=== PATIENT | female | born 1990 | race Caucasian/White ===

== ENCOUNTER 2017-02-19 08:43 | Emergency (ER) | payer BC ==
[~2017-02-19] VITALS: Ht 157.5 cm; Wt 112.0 kg
[~2017-02-19 08:43] MED LIST: ATEN50TA PO; DIAZ5 PO
[2017-02-19 08:45] VITALS: BP 139/97; PULSE 82; RESP 15; TEMP 98.6; O2SAT 98
[2017-02-19 09:01] VITALS: BP 129/71; PULSE 95; RESP 18; O2SAT 100
[2017-02-19] MEDS ORDERED: LISI-515 PO (09:01)
[2017-02-19] MEDS ORDERED: METO50TA PO (09:01)
--- NOTE | 2017-02-19 09:36 | PD ---
HPI Chief Complaint: Medical Clearance Time Seen by Provider: 09:21 Travel History International Travel<30 days: No Contact w/Intl Traveler<30days: No Traveled to known affect area: No History of Present Illness HPI 27-year-old female presents to the emergency room for evaluation of left arm numbness and tingling for the past several hours. Patient states she woke up with her symptoms and believes she slept funny on her arm but because the sensation continued, she came to the emergency room. Patient states while waiting in the emergency room the sensation has improved drastically. Her initial symptoms were from the shoulder to the fingertips, now it only is from the elbows to the finger tips and has decreased in intensity. She denies any weakness, other paresthesias, slurred speech, or difficulty thinking. She has associated headache, sore throat, and congestion that started yesterday. She took ibuprofen for headache yesterday. Patient has history of hypertension and takes her lisinopril metoprolol purposely. Her grandfather and great- grandfather of a stroke. She denies any neck pain or history of neck trauma. PFSH Past Medical History Hx Anticoagulant Therapy: No Anemia: Yes (HX OF AMEMIA) Anxiety: Yes Cardiovascular Problems: Yes (HTN) Chemotherapy: No Cerebrovascular Accident: No Diabetes: No Diminished Hearing: No Headaches: Yes Hypertension: Yes Respiratory: No Immunizations Current: Yes ?: Unknown : 2 Para: 2 Past Surgical History Section: Yes (X 2) Gynecologic Surgery: Yes (C-SECT X 2 ) Hysterectomy: No Social History Alcohol Use: No Tobacco Use: No (never) Substance Use: No Allergies-Medications (Allergen,Severity, Reaction): Coded Allergies: penicillin G (Unverified Allergy, Intermediate, RASH, 12/15/16) Reported Meds & Prescriptions Reported Meds & Active Scripts Active Reported Lisinopril 20 Mg Tab 20 Mg PO DAILY Metoprolol Tartrate 50 Mg Tab 50 Mg PO DAILY Valium (Diazepam) 5 Mg Tab 5 Mg PO BID PRN Review of Systems Except as stated in HPI: all other systems reviewed are Neg Physical Exam Narrative GENERAL: Well-nourished, well-developed female in no acute distress. Afebrile. Ambulatory SKIN: Focused skin assessment warm/dry. HEAD: Normocephalic. EYES: No scleral icterus. No injection or drainage. NECK: Supple, trachea midline. No JVD or lymphadenopathy. CARDIOVASCULAR: Regular rate and rhythm without murmurs, gallops, or rubs. RESPIRATORY: Breath sounds equal bilaterally. No accessory muscle use. NEUROLOGICAL: Awake and alert. Cranial nerves II through XII intact. Motor and sensory grossly within normal limits. Five out of 5 muscle strength in all muscle groups. Normal speech. No pronator drift in upper or lower extremities. Data Data Last Documented VS Vital Signs Date Time Temp Pulse Resp B/P (MAP) Pulse Ox O2 Delivery O2 Flow Rate FiO2 02/19/17 09:01 95 18 129/71 (90) 100 Room Air 02/19/17 08:45 98.6 Orders Orders Ed Discharge Order (02/19/17 09:36) [facility] Medical Decision Making Medical Screen Exam Complete: Yes Emergency Medical Condition: Yes Medical Record Reviewed: Yes Differential Diagnosis Headache, peripheral neuropathy, ICH unlikely Narrative Course 27-year-old female with history of well-controlled hypertension presents to the emergency room for evaluation of left upper extremity paresthesias that started when she woke up this morning. Patient initially thought she slept on her arm wrong but the sensation persisted and brought her to the emergency room. States while waiting in the emergency room room, the sensation has significantly decreased in severity and location. It was initially from shoulder to fingers and it is now from elbow to the fingers. There are no focal neurological deficits on exam. Patient has mild sinus headache but has associated upper respiratory infection. I discussed performing a CT of the head with the patient but she said "only if you think it is necessary." I do not feel it is necessary because patient likely just pinched a nerve last night as patient has had spontaneous improvement with no other neuro deficits. She was reassured and told to follow up with primary care physician or return immediately for any worsening or changing symptoms. She understands and agrees to plan. Diagnosis Primary Impression: Arm paresthesia, left Referrals: Primary Care Physician Additional Instructions: Follow-up with a primary care physician. Return to the emergency room for worsening symptoms. Disposition: 01 DISCHARGE HOME Condition: Stable Tangela Mendez Feb 19, 2017 09:36
== END 2017-02-19 09:44 | disposition home or self-care (01) ==
LOC: NEPE 08:43
DX: R20.2 Paresthesia of skin (principal); R51 Headache; J02.9 Acute pharyngitis, unspecified; I10 Essential (primary) hypertension
CPT/HCPCS: 99281

== ENCOUNTER 2017-06-09 18:08 | Emergency (ER) | payer BC, OTHER ==
[~2017-06-09] VITALS: Ht 160 cm; Wt 115.5 kg
[~2017-06-09 18:08] MED LIST changes: -ATEN50TA PO; +AZIT500T2 PO; +LISI-515 PO; +METO50TA PO
[2017-06-09 18:09] VITALS: BP 170/104; PULSE 130; RESP 20; TEMP 99.3; O2SAT 100
[2017-06-09] MEDS ORDERED: SODIUM CHLOR 0.9% 1000 ML INJ 1,000 ML IV SCH (18:22)
[2017-06-09 18:27] VITALS: O2SAT 100
[2017-06-09] MEDS ORDERED: ONDANSETRON HCL 4 MG/2 ML VIAL IVP ONE (18:30)
[2017-06-09] MEDS ORDERED: SODIUM CHLORIDE 0.9% FLUSH 10 ML FLUSH IV FLUSH PRN (18:30)
[2017-06-09] MEDS ORDERED: KETOROLAC TROMETHAMINE 30 MG/ML (IVP) VIAL IVP ONE (18:30)
--- NOTE | 2017-06-09 18:34 | PD ---
HPI Chief Complaint: GI Complaint Time Seen by Provider: 18:20 Travel History International Travel<30 days: No Contact w/Intl Traveler<30days: No Traveled to known affect area: No History of Present Illness HPI 27-year-old female presents to the emergency department with complaint of feeling nauseated last night with onset of vomiting this morning at approximately 11 AM. Reports vomiting 6-7 times. Reports eating mushrooms last night feels her symptoms could be associated to this. Denies fevers. Reports epigastric pain that is relieved after vomiting. Denies abdominal pain at this time. Says she feels cold and clammy. Denies nasal congestion, ear pain, throat pain, cough. Feels lightheaded and lethargic. Denies diarrhea. Denies hematuria, hematochezia, dysuria. Last vomited approximately 15 minutes ago. Continued nausea. Took Tylenol last night for symptom management. Took Tums today for symptom management with some good relief. No known relieving factors. No known aggravating factors. Her son was sick with similar symptoms within the past week, but was not vomiting. Allergies to penicillin. History of hypertension and is compliant with medications. Primary care provider is Dr. Cox. Has no other medical complaints. No other modifying factors or associated signs and symptoms. PFSH Past Medical History Hx Anticoagulant Therapy: No Anemia: Yes Anxiety: Yes Cardiovascular Problems: Yes (HTN) Chemotherapy: No Cerebrovascular Accident: No Diabetes: No Diminished Hearing: No Headaches: Yes Hypertension: Yes Respiratory: No Immunizations Current: Yes ?: Not LMP: 08/2016 : 2 Para: 2 Past Surgical History Section: Yes (X 2) Gynecologic Surgery: Yes (C-SECT X 2 ) Hysterectomy: No Social History Alcohol Use: No Tobacco Use: No Substance Use: No Allergies-Medications (Allergen,Severity, Reaction): Coded Allergies: penicillin G (Verified Allergy, Intermediate, RASH, 06/09/17) Reported Meds & Prescriptions Reported Meds & Active Scripts Active Ibuprofen 800 Mg Tab 800 Mg PO Q6HR PRN Zofran Odt (Ondansetron Odt) 4 Mg Tab 4 Mg SL Q6HR PRN Reported Lisinopril 20 Mg Tab 20 Mg PO DAILY Metoprolol Tartrate 50 Mg Tab 50 Mg PO DAILY Valium (Diazepam) 5 Mg Tab 5 Mg PO BID PRN Review of Systems Except as stated in HPI: all other systems reviewed are Neg Physical Exam Narrative GENERAL: Well-nourished, well-developed female patient, in no acute distress; low grade temp 99.3, nontoxic-appearing SKIN: Warm and dry. No rash. HEAD: Atraumatic. Normocephalic. EYES: Pupils equal and round. No scleral icterus. No injection or drainage. ENT: Mucosa pink and moist. No erythema or exudates. No uvular edema. No uvular , palatal, or tonsillar deviation. Airway patent. EARS: Bilateral pinnae and external canals appear within normal limits. Bilateral tympanic membranes without erythema, dullness or perforation. NECK: Trachea midline. No lymphadenopathy. CARDIOVASCULAR: Regular rate and rhythm. No murmur appreciated. RESPIRATORY: No accessory muscle use. Clear to auscultation. Breath sounds equal bilaterally. No retractions or tachypnea. GASTROINTESTINAL: Abdomen soft, non-tender, nondistended. Hepatic and splenic margins not palpable. Bowel sounds are active 4 quadrants. MUSCULOSKELETAL: No obvious deformities. No clubbing. No cyanosis. No edema. NEUROLOGICAL: Awake and alert. Oriented 3. No obvious cranial nerve deficits. Motor grossly within normal limits. Normal speech. Moves all extremities. 5/5 strength to all extremities. PSYCHIATRIC: Appropriate mood and affect; insight and judgment normal. Data Data Last Documented VS Vital Signs Date Time Temp Pulse Resp B/P (MAP) Pulse Ox O2 Delivery O2 Flow Rate FiO2 06/09/17 20:53 06/09/17 19:44 89 18 98 Room Air 06/09/17 18:09 99.3 Orders Orders Complete Blood Count With Diff (06/09/17 18:22) Comprehensive Metabolic Panel (06/09/17 18:22) Lipase (06/09/17 18:22) Urinalysis - C+S If Indicated (06/09/17 18:22) Iv Access Insert/Monitor (06/09/17 18:22) Ecg Monitoring (06/09/17 18:22) Oximetry (06/09/17 18:22) Ondansetron Inj (Zofran Inj) (06/09/17 18:30) Sodium Chlor 0.9% 1000 Ml Inj (Ns 1000 M (06/09/17 18:22) Sodium Chloride 0.9% Flush (Ns Flush) (06/09/17 18:30) Ketorolac Inj (Toradol Inj) (06/09/17 18:30) Ed Urine Pregnancytest Poc (06/09/17 18:22) Influenzae A/B Antigen (06/09/17 18:30) Ed Discharge Order (06/09/17 20:11) Labs Laboratory Tests Test 06/09/17 18:46 06/09/17 19:12 White Blood Count 14.9 TH/MM3 Red Blood Count 5.45 MIL/MM3 Hemoglobin 15.3 GM/DL Hematocrit 45.1 % Mean Corpuscular Volume 82.9 FL Mean Corpuscular Hemoglobin 28.0 PG Mean Corpuscular Hemoglobin Concent 33.8 % Red Cell Distribution Width 13.3 % Platelet Count 248 TH/MM3 Mean Platelet Volume 8.3 FL Neutrophils (%) (Auto) 89.3 % Lymphocytes (%) (Auto) 4.7 % Monocytes (%) (Auto) 5.3 % Eosinophils (%) (Auto) 0.5 % Basophils (%) (Auto) 0.2 % Neutrophils # (Auto) 13.3 TH/MM3 Lymphocytes # (Auto) 0.7 TH/MM3 Monocytes # (Auto) 0.8 TH/MM3 Eosinophils # (Auto) 0.1 TH/MM3 Basophils # (Auto) 0.0 TH/MM3 CBC Comment DIFF FINAL Differential Comment Blood Urea Nitrogen 15 MG/DL Creatinine 0.58 MG/DL Random Glucose 108 MG/DL Total Protein 7.5 GM/DL Albumin 3.8 GM/DL Calcium Level 8.9 MG/DL Alkaline Phosphatase 65 U/L Aspartate Amino Transf (AST/SGOT) 16 U/L Alanine Aminotransferase (ALT/SGPT) 29 U/L Total Bilirubin 0.6 MG/DL Sodium Level 137 MEQ/L Potassium Level 3.5 MEQ/L Chloride Level 106 MEQ/L Carbon Dioxide Level 23.0 MEQ/L Anion Gap 8 MEQ/L Estimat Glomerular Filtration Rate 123 ML/MIN Lipase 122 U/L Urine Color YELLOW Urine Turbidity HAZY Urine pH 5.5 Urine Specific [place] 1.030 Urine Protein 30 mg/dL Urine Glucose (UA) NEG mg/dL Urine Ketones NEG mg/dL Urine Occult Blood NEG Urine Nitrite NEG Urine Bilirubin NEG Urine Urobilinogen LESS THAN 2.0 MG/DL Urine Leukocyte Esterase SMALL Urine RBC 7 /hpf Urine WBC 4 /hpf Urine Squamous Epithelial Cells 22 /hpf Urine Bacteria RARE /hpf Urine Mucus MANY /lpf Microscopic Urinalysis Comment CULT NOT INDICATED MDM Medical Decision Making Medical Screen Exam Complete: Yes Emergency Medical Condition: Yes Medical Record Reviewed: Yes Differential Diagnosis Gastritis, gastroenteritis, influenza, viral illness Narrative Course 27-year-old female with vomiting since this morning at 11 AM. Has epigastric pain that is relieved after vomiting. Denies epigastric pain or abdominal pain at this time. Physical exam is unremarkable. Influenza, CBC, CMP, urinalysis, lipase, UPT, normal saline bolus, Zofran, Toradol ordered. 1899: Report given to the KARINA Silverman at change of shift. See her note for final patient disposition. Scripts Ibuprofen (Ibuprofen) 800 Mg Tab 800 MG PO Q6HR Y for PAIN, #40 TAB 0 Refills Prov: Cee Sky 06/09/17 Ondansetron Odt (Zofran Odt) 4 Mg Tab 4 MG SL Q6HR Y for Nausea/Vomiting, #12 TAB 0 Refills Prov: Cee Sky 06/09/17 Mary Glaser Jun 09, 2017 18:34
[2017-06-09 18:52] VITALS: PULSE 102; RESP 16; O2SAT 97
[2017-06-09 19:04] LABS: AUTOMATED NEUTROPHIL # 13.3 TH/MM3 (1.8-7.7); BASOPHIL % 0.2 % (0.0-2.0); EOSINOPHIL # 0.1 TH/MM3 (0-0.4); EOSINOPHIL % 0.5 % (0.0-4.0); HEMATOCRIT 45.1 % (35.0-46.0); HEMOGLOBIN 15.3 GM/DL (11.6-15.3); LYMPH % 4.7 % (9.0-44.0); LYMPHOCYTE # 0.7 TH/MM3 (1.0-4.8); MEAN CELL VOLUME 82.9 FL (80.0-100.0); MEAN CORPUSCULAR HGB CONC 33.8 % (32.0-36.0); MEAN PLATELET VOLUME 8.3 FL (7.0-11.0); MONO % 5.3 % (0.0-8.0); MONOCYTE # 0.8 TH/MM3 (0-0.9); NEUT % 89.3 % (16.0-70.0); PLATELET COUNT 248 TH/MM3 (150-450); RED BLOOD COUNT 5.45 MIL/MM3 (4.00-5.30); RED CELL DISTRIBUTION WIDTH 13.3 % (11.6-17.2); WHITE BLOOD COUNT 14.9 TH/MM3 (4.0-11.0)
[2017-06-09 19:20] LABS: ALBUMIN 3.8 GM/DL (3.4-5.0); AST (GOT) 16 U/L (15-37); BLOOD UREA NITROGEN 15 MG/DL (7-18); CALCIUM 8.9 MG/DL (8.5-10.1); CHLORIDE 106 MEQ/L (98-107); CREATININE 0.58 MG/DL (0.50-1.00); GLOMERULAR FILTRATION RATE 123 ML/MIN (>89); GLUCOSE,RANDOM 108 MG/DL (74-106); SODIUM (NA) 137 MEQ/L (136-145)
[2017-06-09 19:23] LABS: ALKALINE PHOSPHATASE 65 U/L (45-117); ALT (GPT) 29 U/L (10-53); TOTAL BILIRUBIN ADULT 0.6 MG/DL (0.2-1.0); TOTAL PROTEIN 7.5 GM/DL (6.4-8.2)
[2017-06-09 19:44] VITALS: BP 134/83; PULSE 89; RESP 18; O2SAT 98
[2017-06-09 20:01] LABS: BACTERIA, URINE RARE /hpf; BILIRUBIN, URINE NEG (NEG); BLOOD, URINE NEG (NEG); GLUCOSE,URINE NEG (NEG); KETONE, URINE NEG (NEG); MUCUS URINE MANY /lpf (OCC); NITRITE,URINE NEG (NEG); PH, URINE 5.5 (5.0-8.5); SQUAMOUS EPITHELIAL CELL URINE 22 /hpf (0-5); URINE COLOR YELLOW (YELLW/STRAW); URINE LEUKOCYTE ESTERASE SMALL (NEG)
[2017-06-09] MEDS ORDERED: ZOFR4TAB3 SL (20:11)
[2017-06-09] MEDS ORDERED: IBUP1TAB7 PO (20:11)
--- NOTE | 2017-06-09 20:11 | PD ---
Physical Exam Date Seen by Provider: Jun 09, 2017 Time Seen by Provider: 20:07 Narrative For full history and physical examination please see previous providers note. Data Data Last Documented VS Vital Signs Date Time Temp Pulse Resp B/P (MAP) Pulse Ox O2 Delivery O2 Flow Rate FiO2 06/09/17 19:44 89 18 134/83 (100) 98 Room Air 06/09/17 18:09 99.3 Orders Orders Complete Blood Count With Diff (06/09/17 18:22) Comprehensive Metabolic Panel (06/09/17 18:22) Lipase (06/09/17 18:22) Urinalysis - C+S If Indicated (06/09/17 18:22) Iv Access Insert/Monitor (06/09/17 18:22) Ecg Monitoring (06/09/17 18:22) Oximetry (06/09/17 18:22) Ondansetron Inj (Zofran Inj) (06/09/17 18:30) Sodium Chlor 0.9% 1000 Ml Inj (Ns 1000 M (06/09/17 18:22) Sodium Chloride 0.9% Flush (Ns Flush) (06/09/17 18:30) Ketorolac Inj (Toradol Inj) (06/09/17 18:30) Ed Urine Pregnancytest Poc (06/09/17 18:22) Influenzae A/B Antigen (06/09/17 18:30) Labs Laboratory Tests Test 06/09/17 18:46 06/09/17 19:12 White Blood Count 14.9 TH/MM3 Red Blood Count 5.45 MIL/MM3 Hemoglobin 15.3 GM/DL Hematocrit 45.1 % Mean Corpuscular Volume 82.9 FL Mean Corpuscular Hemoglobin 28.0 PG Mean Corpuscular Hemoglobin Concent 33.8 % Red Cell Distribution Width 13.3 % Platelet Count 248 TH/MM3 Mean Platelet Volume 8.3 FL Neutrophils (%) (Auto) 89.3 % Lymphocytes (%) (Auto) 4.7 % Monocytes (%) (Auto) 5.3 % Eosinophils (%) (Auto) 0.5 % Basophils (%) (Auto) 0.2 % Neutrophils # (Auto) 13.3 TH/MM3 Lymphocytes # (Auto) 0.7 TH/MM3 Monocytes # (Auto) 0.8 TH/MM3 Eosinophils # (Auto) 0.1 TH/MM3 Basophils # (Auto) 0.0 TH/MM3 CBC Comment DIFF FINAL Differential Comment Blood Urea Nitrogen 15 MG/DL Creatinine 0.58 MG/DL Random Glucose 108 MG/DL Total Protein 7.5 GM/DL Albumin 3.8 GM/DL Calcium Level 8.9 MG/DL Alkaline Phosphatase 65 U/L Aspartate Amino Transf (AST/SGOT) 16 U/L Alanine Aminotransferase (ALT/SGPT) 29 U/L Total Bilirubin 0.6 MG/DL Sodium Level 137 MEQ/L Potassium Level 3.5 MEQ/L Chloride Level 106 MEQ/L Carbon Dioxide Level 23.0 MEQ/L Anion Gap 8 MEQ/L Estimat Glomerular Filtration Rate 123 ML/MIN Lipase 122 U/L Urine Color YELLOW Urine Turbidity HAZY Urine pH 5.5 Urine Specific [place] 1.030 Urine Protein 30 mg/dL Urine Glucose (UA) NEG mg/dL Urine Ketones NEG mg/dL Urine Occult Blood NEG Urine Nitrite NEG Urine Bilirubin NEG Urine Urobilinogen LESS THAN 2.0 MG/DL Urine Leukocyte Esterase SMALL Urine RBC 7 /hpf Urine WBC 4 /hpf Urine Squamous Epithelial Cells 22 /hpf Urine Bacteria RARE /hpf Urine Mucus MANY /lpf Microscopic Urinalysis Comment CULT NOT INDICATED MDM Medical Record Reviewed: Yes Supervised Visit with CUAUHTEMOC: No Interpretation(s) Laboratory Tests Test 06/09/17 18:46 06/09/17 19:12 White Blood Count 14.9 TH/MM3 Red Blood Count 5.45 MIL/MM3 Hemoglobin 15.3 GM/DL Hematocrit 45.1 % Mean Corpuscular Volume 82.9 FL Mean Corpuscular Hemoglobin 28.0 PG Mean Corpuscular Hemoglobin Concent 33.8 % Red Cell Distribution Width 13.3 % Platelet Count 248 TH/MM3 Mean Platelet Volume 8.3 FL Neutrophils (%) (Auto) 89.3 % Lymphocytes (%) (Auto) 4.7 % Monocytes (%) (Auto) 5.3 % Eosinophils (%) (Auto) 0.5 % Basophils (%) (Auto) 0.2 % Neutrophils # (Auto) 13.3 TH/MM3 Lymphocytes # (Auto) 0.7 TH/MM3 Monocytes # (Auto) 0.8 TH/MM3 Eosinophils # (Auto) 0.1 TH/MM3 Basophils # (Auto) 0.0 TH/MM3 CBC Comment DIFF FINAL Differential Comment Blood Urea Nitrogen 15 MG/DL Creatinine 0.58 MG/DL Random Glucose 108 MG/DL Total Protein 7.5 GM/DL Albumin 3.8 GM/DL Calcium Level 8.9 MG/DL Alkaline Phosphatase 65 U/L Aspartate Amino Transf (AST/SGOT) 16 U/L Alanine Aminotransferase (ALT/SGPT) 29 U/L Total Bilirubin 0.6 MG/DL Sodium Level 137 MEQ/L Potassium Level 3.5 MEQ/L Chloride Level 106 MEQ/L Carbon Dioxide Level 23.0 MEQ/L Anion Gap 8 MEQ/L Estimat Glomerular Filtration Rate 123 ML/MIN Lipase 122 U/L Urine Color YELLOW Urine Turbidity HAZY Urine pH 5.5 Urine Specific [place] 1.030 Urine Protein 30 mg/dL Urine Glucose (UA) NEG mg/dL Urine Ketones NEG mg/dL Urine Occult Blood NEG Urine Nitrite NEG Urine Bilirubin NEG Urine Urobilinogen LESS THAN 2.0 MG/DL Urine Leukocyte Esterase SMALL Urine RBC 7 /hpf Urine WBC 4 /hpf Urine Squamous Epithelial Cells 22 /hpf Urine Bacteria RARE /hpf Urine Mucus MANY /lpf Microscopic Urinalysis Comment CULT NOT INDICATED Vital Signs Date Time Temp Pulse Resp B/P (MAP) Pulse Ox O2 Delivery O2 Flow Rate FiO2 06/09/17 19:44 89 18 134/83 (100) 98 Room Air 06/09/17 18:52 102 16 97 06/09/17 18:27 100 Room Air 06/09/17 18:09 99.3 130 20 170/104 (126) 100 Room Air Differential Diagnosis Viral syndrome versus influenza versus gastritis versus gastroenteritis versus metabolic abnormality versus other Narrative Course Patient is a well-appearing 27-year-old female presenting for evaluation of GI symptoms. Please see previous providers notes for full history and physical examination. Vital signs are stable. CBC with a white count of 14.9 with left shift possibly stress related due to vomiting. Chemistry is unremarkable, urinalysis is not consistent with a urinary tract infection. Patient was given IV fluids, Toradol and Zofran. She reports feeling better. Abdominal exam is benign, urine is negative. At this time patient will be discharged home, she was given strict return precautions. She was advised to maintain adequate fluid intake, take medications as directed and follow-up with her primary doctor. Patient can also return to emergency department for any new or worsening symptoms. Patient verbalized understanding of instructions. Patient stable for discharge. Diagnosis Primary Impression: Viral syndrome Additional Impression: Nausea & vomiting Qualified Codes: R11.2 - Nausea with vomiting, unspecified Referrals: Primary Care Physician Patient Instructions: Acute Nausea and Vomiting (ED), General Instructions, Viral Syndrome (ED) Additional Instruction: Follow-up with your primary doctor Maintain adequate fluid intake Take medications as directed Return to emergency department for any new or worsening symptoms Med/Other Pt SpecificInfo: Prescription(s) given Scripts Ibuprofen (Ibuprofen) 800 Mg Tab 800 MG PO Q6HR Y for PAIN, #40 TAB 0 Refills Prov: Cee Sky 06/09/17 Ondansetron Odt (Zofran Odt) 4 Mg Tab 4 MG SL Q6HR Y for Nausea/Vomiting, #12 TAB 0 Refills Prov: Cee Sky 06/09/17 Disposition: 01 DISCHARGE HOME Condition: Stable Cee Sky Jun 09, 2017 20:11
== END 2017-06-09 20:53 | disposition home or self-care (01) ==
LOC: NEPD 18:08
DX: B34.9 Viral infection, unspecified (principal); R11.2 Nausea with vomiting, unspecified; I10 Essential (primary) hypertension
CPT/HCPCS: 80053; 81001; 83690; 84703; 85025; 87804; 96361; 96374; 96375; 99284; J1885; J2405; J7030